=== PATIENT | female | born 1990 | race African-American/Black ===

== ENCOUNTER 2022-10-15 09:36 | Emergency (ER) | payer MEDICAID ==
[~2022-10-15] VITALS: Ht 170.2 cm; Wt 75.0 kg
[2022-10-15] MEDS ORDERED: MORPHINE SULFATE 4 MG/ML CPJ (NOT FOR IM USE) IV STA (11:40)
[2022-10-15] MEDS ORDERED: ONDANSETRON HCL 4MG/2ML INJ IV STA (11:40)
[2022-10-15] MEDS ORDERED: SODIUM CHLORIDE 0.9% 1,000 ML IV ONE (11:45)
[2022-10-15 12:00] VITALS: BP 127/79
[2022-10-15 12:58] LABS: BASOPHILS % 1.1 % (0.0-2.0); EOSINOPHILS % 0.7 % (0.0-5.0); HEMATOCRIT. 40.7 % (42.0-52.0); LYMPHOCYTES % 21.9 % (20.0-50.0); MEAN CORPUSCULAR HEMOGLOBIN 32.7 pg (28.0-32.0); MEAN CORPUSCULAR VOLUME 95.3 fL (80.0-94.0); NEUTROPHILS % 69.3 % (40.0-76.0); PLATELET 291 x1000/uL (130-400); RED BLOOD CELL COUNT 4.27 mill/uL (4.7-6.1); RED CELL DISTRIBUTION WIDTH 12.8 % (11.6-14.6)
[2022-10-15 12:59] LABS: CHLORIDE 108 mEq/L (98-107)
[2022-10-15 13:04] LABS: CLARITY URINE CLEAR (CLEAR); COLOR URINE YELLOW (YELLOW); KETONES URINE TRACE (NEGATIVE); LEUKOCYTE ESTERASE URINE NEGATIVE (NEGATIVE); NITRITE URINE NEGATIVE (NEGATIVE); OCCULT BLOOD URINE NEGATIVE (NEGATIVE); PH URINE 5.5 (4.5-8.0); PROTEIN URINE 1+ (NEGATIVE); UROBILINOGEN URINE 0.2 E.U./dL (0.2-1.0)
[2022-10-15 13:14] LABS: HCG SCREEN NEGATIVE
[2022-10-15] MEDS ORDERED: METR-167 MT (14:46)
[2022-10-15] MEDS ORDERED: POLY17PO3 MT (15:13)
== END 2022-10-15 16:35 | disposition home or self-care (01) ==
LOC: ER 11:05 → EDSEX 11:05 → ER 16:35
DX: N89.8 Other specified noninflammatory disorders of vagina (principal); R10.31 Right lower quadrant pain
CPT/HCPCS: 36415; 74176; 76830; 76856; 76857; 80053; 81003; 83690; 84703; 85025; 87210; 99284; J7030; J2270; J2405